=== PATIENT | male | born 1985 | race African-American/Black ===

== ENCOUNTER 2018-06-17 14:43 | Emergency (ER) | payer OTHER ==
[~2018-06-17] VITALS: Ht 175.3 cm; Wt 132.4 kg
[2018-06-17 14:48] VITALS: Ht 175.3 cm; Wt 132.4 kg
[2018-06-17 15:06] VITALS: BP 160/90
== END 2018-06-17 15:06 | disposition home or self-care (01) ==
LOC: ED 14:43
DX: M25.559 Pain in unspecified hip (principal); G89.29 Other chronic pain; I10 Essential (primary) hypertension